=== PATIENT | male | born 1945 | race Caucasian/White ===

== ENCOUNTER 2018-12-15 12:46 | Inpatient (IN) | payer OTHER, MEDICAID ==
[~2018-12-15] VITALS: Ht 185.4 cm; Wt 102.1 kg
--- NOTE | 2018-12-15 12:50 | NUR ---
ATTEMTED TO TRIAGE PT AND HE REFUSED AT THIS TIME BECAUSE HE WAS GETTING FOOD OUT OF VENDING MACHINE, PT STATES HE ONLY WANTS A NURSE WHO SPEAKS FILIPINO.
--- NOTE | 2018-12-15 13:20 | NUR ---
Patient to ER bed 3 to gown for evaluation. Side rails up.
[2018-12-15 13:27] VITALS: BP_SYST 160
--- NOTE | 2018-12-15 13:28 | NUR ---
Pt AAOx4 presents to ED from boarding care c/o acute on chronic R leg pain. Pt non-compliant, refusing to answer questions. Skin dry and warm, breathing even and unlabored. No other injuries/complaints per pt/noted. Will continue to monitor.
--- NOTE | 2018-12-15 13:42 | NUR ---
ER at bedside examining patient.
--- NOTE | 2018-12-15 14:32 | NUR ---
# 22 gauge angiocath placed to left hand. Use of asceptic technique. Opsite placed over site. Blood return noted. Blood for lab drawn from site. Flushed with 10 cc of normal saline. No evidence of infiltration noted. Patient tolerated well.
[2018-12-15 14:39] LABS: EOSINOPHILS # (AUTO) 0.3 K/uL (0.0-0.4); EOSINOPHILS % (AUTO) 4.9 % (0.0-4.0); HEMOGLOBIN 15.9 g/dL (14.0-18.0); LYMPHOCYTES % (AUTO) 16.6 % (20.5-51.5); MEAN CORPUSCULAR HEMOGLOBIN 29 pg (27-31); MEAN CORPUSCULAR HGB CONC 34 % (32-36); MEAN CORPUSCULAR VOLUME 86 fL (79.0-98.0); MONOCYTES # (AUTO) 0.5 K/uL (0.0-1.0); MONOCYTES % (AUTO) 7.4 % (1.7-9.3); PLATELET COUNT (AUTO) 231 K/uL (130-430); RED BLOOD CELL COUNT(AUTO) 5.45 MIL/uL (4.2-6.2); RED CELL DISTRIBUTION WIDTH 14.6 % (9.0-15.0); WHITE BLOOD COUNT (AUTO) 6.2 K/uL (4.8-10.8)
[2018-12-15] MEDS ORDERED: METH40TA14 PO (14:42)
[2018-12-15] MEDS ORDERED: FURO-150 PO (14:42)
[2018-12-15] MEDS ORDERED: GABA-533 PO (14:42)
[2018-12-15] MEDS ORDERED: IPRA4AER INH (14:42)
[2018-12-15] MEDS ORDERED: CLON1TAB12 PO (14:42)
--- NOTE | 2018-12-15 14:43 | NUR ---
Medication reconciliation completed with information provided by patient. Any prior medication reconciliation on file was reviewed and corrected.
[2018-12-15 14:44] LABS: ANION GAP 4 (5-15); CHLORIDE 100 mmol/L (98-107); CREATININE 1.06 mg/dL (0.55-1.30); GLUCOSE 133 mg/dL (70-99); SODIUM SERUM 134 mmol/L (136-145); UREA NITROGEN, BLOOD 15 mg/dL (8-21)
[2018-12-15 14:45] LABS: BASOPHILS % (AUTO) 0.3 % (0.0-2.0); NEUTROPHILS # (AUTO) 4.4 K/uL (1.8-7.7); NEUTROPHILS % (AUTO) 70.8 % (40.0-70.0)
[2018-12-15 14:52] LABS: ALANINE AMINOTRANSFERASE 13 U/L (12-78); ALBUMIN 3.9 g/dL (3.4-4.8); ASPARTATE AMINOTRANSFERASE 24 U/L (10-37); TOTAL BILIRUBIN 0.6 mg/dL (0.0-1.0)
[2018-12-15 14:56] LABS: BILIRUBIN,URINE NEGATIVE (NEGATIVE); BLOOD, URINE NEGATIVE (NEGATIVE); CLARITY/URINE CLEAR (CLEAR); COLOR,URINE YELLOW (YELLOW); GLUCOSE,URINE NEGATIVE (NEGATIVE); KETONES,URINE NEGATIVE (NEGATIVE); LEUKOCYTE ESTERASE ,URINE NEGATIVE (NEGATIVE); NITRITE, URINE NEGATIVE (NEGATIVE); PROTEIN URINE NEGATIVE (NEGATIVE); UROBILINOGEN,URINE 0.2 (0.2-1.0)
--- NOTE | 2018-12-15 14:56 | NUR ---
Ultrasound at bedside
--- NOTE | 2018-12-15 16:06 | NUR ---
Patient will be admitted to [facility]. Admitted to Med Surg unit. Bed number pending per [facility]. Summary report printed. Report will be given at bedside.
--- NOTE | 2018-12-15 16:30 | NUR ---
Per [facility], room number pending.
--- NOTE | 2018-12-15 16:49 | NUR ---
CONSULTATION PAGED/CALLED Reason for Consultation: [] CELLULITIS Person Who was Notified: [] JUNIE Consulting Physician: [] DR RUCHI ROSADO Master [employer] Glass Technician Specialty: [] ID Ordering Physician: [] DR Meenu LERMA
--- NOTE | 2018-12-15 16:55 | NUR ---
ADMISSION: The patient, FRANCIS PALACIO , 73 y/o, M admitted by ETELVINA LERMA MD, was given written information regarding hospital policies, unit procedures and contact persons. Valuables were checked and .
[2018-12-15 17:00] VITALS: BP_SYST 158
--- NOTE | 2018-12-15 17:00 | NUR ---
RECIEVED PT FROM ER WITH A DX OF CELLULITIS, PT WAS TRANSFERRED VIA [facility]. PT IS AMBULATED FROM [facility] TO BED, GAIT STABLE, PT COMPLAINED OF RIGHT FOOT PAIN WHILE AMBULATING. PT IS ALERT AND ORIENTED X4, IN RA, NO SOB, LUNGS CTA, BOWEL PRESENT ON ALL QUADRANT, IV SL ON LEFT HAND. BILATERAL LOWER LEGS SWELLING AND SKIN DISCOLORATION, ORIENTATED PT TO NURSE TIME AND PLACE, REVIEWED PLAN OF CARE, ENCOURAGED PT TO USE CALL LIGHT NEEDED
--- NOTE | 2018-12-15 17:04 | NUR ---
CONSULTATION PAGED/CALLED Reason for Consultation: [] DEPRESSION Person Who was Notified: [] JUNIE Consulting Physician: [] DR Vega SANCHEZ [employer] Specialty: [] PSYCH Ordering Physician: [] DR Meenu LERMA
--- NOTE | 2018-12-15 18:14 | NUR ---
Spoke to Juan Jose Egan and made aware of consults, Per MD he will come and see patient.
[2018-12-15] MEDS: VANCOMYCIN HCL 1,250 MG in NS 250 ML IV SCH (18:19)
--- NOTE | 2018-12-15 18:49 | NUR ---
CLOSING PT REMAINS STABLE, NO SOB. DENIES ANY PAIN, CALL LIGHT WITHIN REACH
--- NOTE | 2018-12-15 19:30 | NUR ---
Opening notes Received report. Patient is resting in bed. No signs of distress noted. Breathing even and unlabored. IV patent and intact, no signs of infiltration noted. Patient is ambulatory with steady gait. Dry scab and redness noted on right 5th toe. Patient states its been like that for 2 weeks. Patient requesting home medications. will page MD. Call light with the patient. Safety precautions in place.
[2018-12-15 20:00] VITALS: BP_SYST 132
--- NOTE | 2018-12-15 21:30 | NUR ---
Dr. Rnoquillo at bedside seen and examine patient. MD reconciled medications.
[2018-12-15] MEDS ORDERED: IPRATROPIUM/ALBUTEROL SULFATE 120 PUFFS/4 GM INH INH SCH (21:45)
[2018-12-15] MEDS ORDERED: clonazePAM 0.5 MG TABLET PO SCH (22:30)
--- NOTE | 2018-12-15 23:03 | NUR ---
Medication given. Educated the action and side effects of medications. Patient verbalized understanding and tolerated well. No signs of allergic reaction noted. No other needs at this time. call light with the patient. Safety precautions in place.
[2018-12-16] VITALS (7 sets, daily range): BP systolic 128–141
--- NOTE | 2018-12-16 01:30 | NUR ---
RESTING PATIENT RESTING IN BED WATCHING A MOVIE ON PHONE. NO SIGNS OF DISTRESS NOTED. BREATHING EVEN AND UNLABORED. NO NEEDS AT THIS TIME. CALL LIGHT WITH THE PATIENT. SAFETY PRECAUTIONS IN PLACE.
--- NOTE | 2018-12-16 04:00 | NUR ---
Sleeping No signs of distress noted. Breathing even and unlabored. Call light with the patient. Safety precautions in place.
[2018-12-16] MEDS: VANCOMYCIN HCL 1,250 MG in NS 250 ML IV SCH ×2 (05:58→17:55)
[2018-12-16 06:37] LABS: HEMATOCRIT 45.1 % (36-54); HEMOGLOBIN 15.6 g/dL (14.0-18.0); MEAN CORPUSCULAR HEMOGLOBIN 30 pg (27-31); MEAN CORPUSCULAR HGB CONC 35 % (32-36); MEAN CORPUSCULAR VOLUME 86 fL (79.0-98.0); PLATELET COUNT (AUTO) 203 K/uL (130-430); RED BLOOD CELL COUNT(AUTO) 5.27 MIL/uL (4.2-6.2); RED CELL DISTRIBUTION WIDTH 14.3 % (9.0-15.0); WHITE BLOOD COUNT (AUTO) 5.4 K/uL (4.8-10.8)
--- NOTE | 2018-12-16 06:47 | NUR ---
Closing notes Patient resting in bed, watching movie on phone. No signs of distress noted. Breathing even and unlabored. IV patent and intact, infusing abx. All needs met throughout the shift. Call light with the patient. Safety precautions in place. Will endorse care to day shift RN.
[2018-12-16 07:02] LABS: ALANINE AMINOTRANSFERASE 11 U/L (12-78); ALBUMIN 3.5 g/dL (3.4-4.8); ANION GAP 5 (5-15); ASPARTATE AMINOTRANSFERASE 23 U/L (10-37); CALCIUM 9.2 mg/dL (8.4-11.0); CHLORIDE 104 mmol/L (98-107); CREATININE 0.92 mg/dL (0.55-1.30); GLUCOSE 95 mg/dL (70-99); POTASSIUM 3.9 mmol/L (3.5-5.1); SODIUM SERUM 138 mmol/L (136-145); TOTAL BILIRUBIN 0.7 mg/dL (0.0-1.0); UREA NITROGEN, BLOOD 13 mg/dL (8-21)
--- NOTE | 2018-12-16 07:59 | NUR ---
AM NOTES- walking in the room and very upset, wants his methadone now. Called pharmacy and made aware. Informed patient that they have to verify it first. denies any shortness of breath, Update plan of care. safety precaution observed. call light within reach. will monitor.
[2018-12-16] MEDS ORDERED: IPRATROPIUM/ALBUTEROL SULFATE 3 ML AMPUL.NEB (DUONEB) INH PRN (08:00)
[2018-12-16] MEDS: clonazePAM 0.5 MG TABLET PO SCH ×4 (08:33→20:27)
[2018-12-16] MEDS: FUROSEMIDE 20 MG TABLET PO SCH (08:34)
[2018-12-16] MEDS ORDERED: GABAPENTIN 400 MG CAPSULE PO SCH (09:00)
[2018-12-16] MEDS ORDERED: METHADONE HCL 10 MG TABLET PO SCH (09:00)
--- NOTE | 2018-12-16 11:00 | NUR ---
Pt is walking in the hallway, No acute distress noted.
[2018-12-16 11:48] LABS: BAND % (MANUAL) 2 % (0-6); BASOPHILS % (MANUAL) 0 % (0-2); EOSINOPHILS % (MANUAL) 4 % (0-7); LYMPHOCYTES % (MANUAL) 10 % (20-46); MONOCYTES % (MANUAL) 10 % (0-11)
--- NOTE | 2018-12-16 12:53 | NUR ---
Pt stated that he takes neurontin 400mg 3x a day. Prieto luna MD.
--- NOTE | 2018-12-16 15:00 | NUR ---
still waiting for Dr. Ronquillo to call back RE: Neurontin frequency.
--- NOTE | 2018-12-16 15:23 | NUR ---
Seen By Dr. Ingram at bedside.
--- NOTE | 2018-12-16 18:30 | NUR ---
Notes- Pt is went to Bone scan at this time. No change in assessment. All needs meet through out shift.
--- NOTE | 2018-12-16 19:15 | NUR ---
CHANGE OF SHIFT; pt. sleeping when received, no acute distress. dayshift nurse got an order for Kennedy instead of Percocet from Dr. Ronquillo. call liglorraine at bedside. safety measures in place. will reassess later.
[2018-12-16] MEDS: GABAPENTIN 400 MG CAPSULE PO SCH (20:27)
--- NOTE | 2018-12-16 20:30 | NUR ---
NOTES: pt. awakened, was sleeping, headset on and was watching on his phone. IV antibiotic still infusing on left hand. VS checked. call light at bedside, saying he does not need it but placed on side rail. will be hot die picker for the second part of the bone scan test for his rt. foot. dry wound on 5th toe(rt. foot). foot part elevated.
[2018-12-16] MEDS: HYDROcodone/ACETAMIN 5-325 MG TAB (NORCO/ VICODIN) PO PRN (20:40)
--- NOTE | 2018-12-16 21:46 | NUR ---
NOTES: pt. ambulated to the restroom, pt. easily gets upset but apologize after. new urinal at bedside. IV lock , slight pain when flushing. noted some relief from pain.
--- NOTE | 2018-12-16 22:30 | NUR ---
NOTES: pt. left via wheelchair for part 2 of bone scan in stable condition.
--- NOTE | 2018-12-16 23:35 | NUR ---
NOTES; pt. came back from the test. settled in bed, repositioned self.
--- NOTE | 2018-12-17 01:03 | NUR ---
NOTES: made rounds and pt. sleeping. condition observed.
[2018-12-17] MEDS: HYDROcodone/ACETAMIN 5-325 MG TAB (NORCO/ VICODIN) PO PRN ×2 (02:39→12:47)
--- NOTE | 2018-12-17 02:39 | NUR ---
NOTES: pt. got out of bed and walked up to the nurses station to tell that he is in pain, did not use call light and was upset when told to use it , said he went to the restroom and voided. pt. medicated with Edmore as ordered and had to get sprite coz he does not drink water. pt. cursed earlier with a loud voice.
--- NOTE | 2018-12-17 04:00 | NUR ---
NOTES: pt. checked and sleeping soundly.
[2018-12-17] MEDS: VANCOMYCIN HCL 1,250 MG in NS 250 ML IV SCH ×2 (05:25→17:35)
--- NOTE | 2018-12-17 05:34 | NUR ---
NOTES: pt. awakened and went to the restroom. IV site flushed slowly, due IV antibiotic started and regulated. back to bed and will try to go back to sleep.
--- NOTE | 2018-12-17 05:59 | NUR ---
Isabel Pickard spoke to the doctor
[2018-12-17] MEDS ORDERED: METHADONE HCL 10 MG TABLET PO SCH (06:04)
--- NOTE | 2018-12-17 06:07 | NUR ---
NOTES; called Dr. Ronquillo, pt. c/o severe rt. knee burning pain, aware pain medication is not due but wants his Methadone now since pt. said he always take it early am. Ok to give early @ 0600, called pharmacist Dale to adjust time.
[2018-12-17] MEDS: METHADONE HCL 10 MG TABLET PO SCH (06:19)
--- NOTE | 2018-12-17 06:44 | NUR ---
CLOSING NOTES; pt. resting, much calmer, bone scan result still pending. IV antibiotic still infusing. needs attended. for further care and assistance. call light within reach.
--- NOTE | 2018-12-17 07:34 | NUR ---
Initial notes: Patient sleeping. Stable. I.V. access patent. Call light within reach. Safety measures in placed. Report received at bedside.
[2018-12-17 08:00] VITALS: BP_SYST 140
[2018-12-17] MEDS: GABAPENTIN 400 MG CAPSULE PO SCH ×3 (08:49→21:31)
[2018-12-17] MEDS: clonazePAM 0.5 MG TABLET PO SCH ×4 (08:49→21:31)
[2018-12-17] MEDS: FUROSEMIDE 20 MG TABLET PO SCH (08:50)
--- NOTE | 2018-12-17 08:53 | NUR ---
rounds: Patient woke up. Alert, awake and oriented. Discussed plan of care. Refused Furosemide. Education provided and still refused. Insist of saying he stop taking it for 2 weeks.
[2018-12-17 11:11] VITALS: BP_SYST 163
--- NOTE | 2018-12-17 12:12 | NUR ---
rounds: Patient sleeping. No distress noted.
--- NOTE | 2018-12-17 12:29 | NUR ---
Nutrition Update Grzegorz Scale 18 noted. Pt admitted for cellulitis. Diet: regular BMI: 29.7 kg/m2 RD to follow per nutrition care standards.
--- NOTE | 2018-12-17 13:25 | NUR ---
Pain: Patient complained of severe r leg pain. Pain med was already given but pt crying from pain. Called Dr Ronquillo with new order for pain med.
--- NOTE | 2018-12-17 14:36 | NUR ---
rounds: Patient sleeping. no distress noted.
[2018-12-17 15:03] VITALS: BP_SYST 128
--- NOTE | 2018-12-17 16:05 | NUR ---
rounds: Patient listening to music. no distress noted.
[2018-12-17] MEDS: OXYCODONE/ACETAMINOPHEN *10*mg/325 mg TABLET PO PRN ×2 (17:35→23:32)
--- NOTE | 2018-12-17 18:35 | NUR ---
Closing notes: Patient finishing dinner. Stable. Needs attended. Informed Patient he will have an MRI for further study of his R foot. Call light within reach. Safety measures in placed. report will be given to shift superintendent.
--- NOTE | 2018-12-17 19:15 | NUR ---
CHANGE OF SHIFT; pt. sleeping when received, was just medicated for pain on rt. leg/knee/foot. IV antibiotic still infusing. no acute distress. call light at bedside. will reassess later.
[2018-12-17 21:00] VITALS: BP_SYST 143
--- NOTE | 2018-12-17 22:00 | NUR ---
NOTES: IV site infiltrated, appears reddened skin on left hand. Nurse Bismark asked to insert another one, IV on rt forearm with # 22 gauge inserted.
--- NOTE | 2018-12-17 23:35 | NUR ---
NOTES: pt. crying for pain, medicated with Percocet as ordered for his rt. leg/foot/knee and rt. arm pain.
--- NOTE | 2018-12-17 23:45 | NUR ---
NOTES: pt. unable to get to restroom in time, use the urinal but accidentally spill some urine on the floor. kept floor dry. will change beddings since it got stained with blood when IV was reinserted. asked ORQUIDEA Rivas to change bedsheet.
[2018-12-18 00:22] VITALS: BP_SYST 140
--- NOTE | 2018-12-18 02:00 | NUR ---
NOTES; pt. checked and sleeping. in no distress.
--- NOTE | 2018-12-18 04:14 | NUR ---
NOTES: pt. pretty awake, gave pudding. dangling at bedside. condition observed.
[2018-12-18] MEDS: VANCOMYCIN HCL 1,250 MG in NS 250 ML IV SCH (05:59)
[2018-12-18] MEDS: METHADONE HCL 10 MG TABLET PO SCH (05:59)
--- NOTE | 2018-12-18 06:00 | NUR ---
NOTES: pt. waiting for his methadone this am and given and his IV antibiotic. Dr. Sotomayor here, talked to pt. and will order new med. still with chronic rt. leg/foot pain due to cellulitis and OA on rt. 5th toe. pt. needs attended.call light at bedside.
--- NOTE | 2018-12-18 06:40 | NUR ---
CLOSING NOTES; pt. is giving the organic lab worker a hard time to draw his blood, attempted twice, will ask someone to draw blood later. IV antibiotic in progress via rt. arm. for further care and assist. will endorse to day shift.
--- NOTE | 2018-12-18 07:55 | NUR ---
Opening note patient resting in bed, a/ox4, denies pain, assessment complete, IV line is patent and infusing well, educated the patient public opinion survey taker light system and on plan of care and to call for any assistance, he verbalized understanding, no other needs at this time, bed in lowest position, two side rails up, call light within reach, fall and aspiration precautions in place.
[2018-12-18 08:40] VITALS: BP_SYST 150
[2018-12-18] MEDS: FUROSEMIDE 20 MG TABLET PO SCH (09:00)
[2018-12-18] MEDS: GABAPENTIN 400 MG CAPSULE PO SCH ×3 (09:15→21:35)
[2018-12-18] MEDS: clonazePAM 0.5 MG TABLET PO SCH ×4 (09:15→21:34)
[2018-12-18] MEDS: DULoxetine HCL 30 MG CAPSULE.DR (CYMBALTA) PO SCH (09:15)
--- NOTE | 2018-12-18 09:15 | NUR ---
Medication patient resting in bed, denies pain, educated on morning medications uses and potential side effects, patient refused lasix PO, educated on benefits, he still refuses, otherwise he took all medication and tolerated well, no other needs at this time, continuing to monitor, bed in lowest position, two side rails up, call light within reach, fall and aspiration precautions in place.
[2018-12-18 09:38] LABS: BASOPHILS # (AUTO) 0.1 K/uL (0.0-0.2); BASOPHILS % (AUTO) 1.2 % (0.0-2.0); EOSINOPHILS # (AUTO) 0.3 K/uL (0.0-0.4); EOSINOPHILS % (AUTO) 5.1 % (0.0-4.0); HEMATOCRIT 43.4 % (36-54); LYMPHOCYTES # (AUTO) 0.8 K/uL (1.0-5.5); LYMPHOCYTES % (AUTO) 14.8 % (20.5-51.5); MEAN CORPUSCULAR HEMOGLOBIN 30 pg (27-31); MEAN CORPUSCULAR HGB CONC 35 % (32-36); MEAN CORPUSCULAR VOLUME 86 fL (79.0-98.0); MONOCYTES # (AUTO) 0.3 K/uL (0.0-1.0); MONOCYTES % (AUTO) 5.5 % (1.7-9.3); NEUTROPHILS # (AUTO) 3.8 K/uL (1.8-7.7); NEUTROPHILS % (AUTO) 73.4 % (40.0-70.0); PLATELET COUNT (AUTO) 186 K/uL (130-430); RED BLOOD CELL COUNT(AUTO) 5.07 MIL/uL (4.2-6.2); RED CELL DISTRIBUTION WIDTH 14.2 % (9.0-15.0); WHITE BLOOD COUNT (AUTO) 5.1 K/uL (4.8-10.8)
[2018-12-18 09:43] LABS: ALANINE AMINOTRANSFERASE 10 U/L (12-78); ALBUMIN 3.5 g/dL (3.4-4.8); ANION GAP 7 (5-15); ASPARTATE AMINOTRANSFERASE 21 U/L (10-37); CALCIUM 8.7 mg/dL (8.4-11.0); CHLORIDE 103 mmol/L (98-107); CREATININE 1.14 mg/dL (0.55-1.30); GLUCOSE 143 mg/dL (70-99); POTASSIUM 3.8 mmol/L (3.5-5.1); SODIUM SERUM 140 mmol/L (136-145); TOTAL BILIRUBIN 0.6 mg/dL (0.0-1.0); UREA NITROGEN, BLOOD 15 mg/dL (8-21)
[2018-12-18 11:33] VITALS: BP_SYST 131
--- NOTE | 2018-12-18 12:35 | NUR ---
Patient off the unit to MRI, patient in stable condition.
[2018-12-18] MEDS: OXYCODONE/ACETAMINOPHEN *10*mg/325 mg TABLET PO PRN (14:26)
--- NOTE | 2018-12-18 14:28 | NUR ---
Patient back on the unit/Pain patient resting in bed, complaining of generalized pain, educated patient on scheduled and PRN medication uses and potential side effects, re-educated on safety precautions, he verbalized understanding, continuing to monitor patient, bed in lowest position, two side rails up, call light within reach, fall and aspiration precautions in place.
--- NOTE | 2018-12-18 15:26 | NUR ---
RN rounds patient resting in bed, awake, states pain has improved, no other needs at this time, continuing to monitor, bed in lowest position, two side rails up, call light within reach, fall and aspiration precautions in place.
[2018-12-18 15:39] VITALS: BP_SYST 138
--- NOTE | 2018-12-18 17:49 | NUR ---
Medication patient resting in bed, denies pain, educated on medications uses and potential side effects, patient verbalized understanding and tolerated well, called dietary for grilled cheese sandwich for patient per his request, continuing to monitor patient, bed in lowest position, two side rails up, call light within reach, fall and aspiration precautions in place.
--- NOTE | 2018-12-18 18:46 | NUR ---
Closing note patient resting in recliner chair, stable condition, all needs met, will endorse report to NOC shift nurse, continuing to monitor patient, bed in lowest position and two side rails up for when patient wishes to return to bed, bed brake on, fall and aspiration precautions in place
--- NOTE | 2018-12-18 19:15 | NUR ---
OPENING NOTES RECEIVED PATIENT SITTING IN JOSUE CHAIR AAO X4. BREATHING UNLABORED ON ROOM AIR. SALINE LOCK INTACT TO RFA. NO DISTRESS NOTED.
[2018-12-18 21:27] VITALS: BP_SYST 135
[2018-12-18] MEDS: VANCOMYCIN HCL 1 GM/NS PREMIX 250 ML IV SCH (21:32)
--- NOTE | 2018-12-18 21:35 | NUR ---
MED PASS/ATB PATIENT DUE MEDICATIONS GIVEN. DUE ANTIBIOTIC INFUSED. IV LINE INTACT. VITAL SIGNS STABLE.
[2018-12-19] VITALS (7 sets, daily range): BP systolic 118–139
[2018-12-19] MEDS: OXYCODONE/ACETAMINOPHEN *10*mg/325 mg TABLET PO PRN ×3 (01:26→15:19)
--- NOTE | 2018-12-19 01:26 | NUR ---
PAIN MGT PATIENT MEDICATED WITH PERCOCET FOR C/O BLE/YANETH HIPS/SHOULDER PAIN 09/30. VITAL SIGNS STABLE. CALL LIGHT WITH IN REACH.
--- NOTE | 2018-12-19 03:30 | NUR ---
ROUNDS NO CHANGE IN CONDITION. CALL LIGHT WITH IN REACH.
[2018-12-19 04:59] LABS: CALCIUM 8.6 mg/dL (8.4-11.0); CREATININE 0.91 mg/dL (0.55-1.30); GLUCOSE 105 mg/dL (70-99); POTASSIUM 4.2 mmol/L (3.5-5.1); SODIUM SERUM 136 mmol/L (136-145); UREA NITROGEN, BLOOD 14 mg/dL (8-21)
[2018-12-19 05:07] LABS: ANION GAP 3 (5-15); CHLORIDE 103 mmol/L (98-107)
[2018-12-19] MEDS: METHADONE HCL 10 MG TABLET PO SCH (05:38)
--- NOTE | 2018-12-19 06:29 | NUR ---
CLOSING NOTES PATIENT RESTING IN BED. NO DISTRESS NOTED. PATIENT NEEDS ATTENDED. BED IN LOWEST LOCKED POSITION. CALL LIGHT WITH IN REACH.
--- NOTE | 2018-12-19 07:10 | NUR ---
SBAR REPORT RECEIVED AT THE BEDSIDE. PATIENT AAOX 4. BREATHING EVEN AND UNLABORED. ABDOMEN SOFT AND NON DISTENDED. HAS IV ACCESS ON THE RT FOREARM #22. SALINE LOCK. BOTH LEGS DISCOLORATION NOTED. HAS NON PITTING EDEMA ON THE RT LEG. AND HAS DRY SCAB ON 5TH TOE. BED LOW POSITION, ALARMED AND LOCKED. CALL LIGHTS WITHIN REACH. CONTINUE TO MONITOR PATIENTS STATUS.
[2018-12-19] MEDS: VANCOMYCIN HCL 1 GM/NS PREMIX 250 ML IV SCH (08:18)
[2018-12-19] MEDS: clonazePAM 0.5 MG TABLET PO SCH ×4 (08:18→19:45)
[2018-12-19] MEDS: GABAPENTIN 400 MG CAPSULE PO SCH ×3 (08:18→19:45)
[2018-12-19] MEDS: DULoxetine HCL 30 MG CAPSULE.DR (CYMBALTA) PO SCH (08:19)
[2018-12-19] MEDS: FUROSEMIDE 20 MG TABLET PO SCH (08:19)
--- NOTE | 2018-12-19 08:24 | NUR ---
MED PASS. PERCOCET TABLET GIVEN. ASSISTS ON ADLS.
--- NOTE | 2018-12-19 11:58 | NUR ---
Discharge Planning: DCP faxed to Brenna [facility] (f [phone] p [phone]) DCP to follow up Addendum: 12/19/18 at 1431 by Romy Zhang DP Per Brenna at [facility] (f [phone] p [phone]) patient declined does not meet criteria. DCP faxed to [facility] (f [phone] p [phone]) DCP to follow up Addendum: 12/19/18 at 1546 by Romy Zhang DP [facility] (f [phone] p [phone]) RM 36A DCP made nurse aware, also a DC order is needed. Addendum: 12/19/18 at 1633 by Romy Zhang DP [facility] (f [phone] p [phone]) 36A, Care ([phone]) 7:00pm P/U nurse made aware and patient packet taken to nurse station. Addendum: 12/19/18 at 1711 by Romy Zhang DP Per CM DCP cancelled transportation [facility] (f [phone] p [phone]) RM 36A.
--- NOTE | 2018-12-19 12:35 | NUR ---
klonopin tablet given with water. made comfortable. still eating lunch
--- NOTE | 2018-12-19 14:46 | NUR ---
WOUND EVALUATION: Wound Consult received from Dr. Ronquillo. Thank you, Dr. Ronquillo, for the consult. Patient received in a Loulou Bed with an IsoFlex SERENITY mattress, awake, alert, and oriented x 4. Patient is able to turn in bed and ambulate independently. Grzegorz Score is a 21. Past Medical History: Chronic back and right leg pain on Methadone, Prostate Cancer, COPD, PTSD, Osteoarthritis. Recent Labs: WBC 5.1, RBC 5.07, hemoglobin 15.0, hematocrit 43.4, glucose 105, albumin 3.5. Microbiology: Blood culture results 2 in progress. Urine culture results negative. Intrinsic factors that delay wound healing: COPD. Extrinsic factors that delay wound healing: Decreased mobility. Wound Assessment: 1. Right fifth toe: Chronic ischemic wound, present on admission. Wound bed has 80% brown eschar, 10% black eschar, 10% yellow eschar. No odor, no drainage. Periwound intact. Dry, stable. Measures 1. 6 cm x 1.2 cm. Recommend: [place] wound with Betadine. Allow to air dry. Cover with foam dressing. Perform wound care and assess site daily, and as needed for dressing soiling or dislodgement. Also recommend: Encourage and assist patient as needed with repositioning every 2 hours with pillow support and off-load pressure areas with pillows for pressure re-distribution. Offload, elevate and float bilateral heels with pillows. Perform skin care and monitor skin integrity Q shift. Use moisture barrier cream on buttocks and other moisture susceptible areas QID and as needed for soiling.
--- NOTE | 2018-12-19 15:40 | NUR ---
CALLED DR LERMA FOR DISCHARGE ORDER.
--- NOTE | 2018-12-19 16:59 | NUR ---
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
--- NOTE | 2018-12-19 17:00 | NUR ---
klonopin 1 mg tablet given with water.
--- NOTE | 2018-12-19 17:08 | NUR ---
DC PLANNING: CM SPOKE WITH PATIENT AT BEDSIDE REGARDING DC TODAY TO [facility]. PATIENT STATED HE IS NOT HAPPY GOING TO [facility]. PATIENT STATED HE HAS BEEN AT A SNF AT [place]. HOWEVER, WAS NOT ABLE TO PROVIDE THE SNF NAME. PATIENT WILL LOOK FOR THE NAME OF THE SNF WILL BE PROVIDE TO CM ONCE HE FIND THE NAME.
--- NOTE | 2018-12-19 17:54 | NUR ---
AGREE FOR DC: PATIENT WALKS TO THE STATION AND STATES THAT HE AGREES TO GO TO [facility] TONIGHT. GET HIM SIGN ACKNOWLEDGEMENT TRANSFER CONSENT, AND CALL [facility] AND ARRANGE TRANSPORTATION AT 19.00 TONIGHT.
--- NOTE | 2018-12-19 18:00 | NUR ---
HAD DINNER GOOD. NO COMPLAINED MADE SO FAR. VERBALIZED WANTS TO GO TO [facility] AND AGREED TO GO.
--- NOTE | 2018-12-19 19:10 | NUR ---
sbar endorsed to Esther REIS. patient will be discharged to [facility].
--- NOTE | 2018-12-19 19:30 | NUR ---
Ambulance here at the [facility] to pick pt up, but pt refused to leave without first taking his 2100 Klonopin. Pt is fully AAO x4, ambulatory with steady gait. Pt already signed his transition of care/discharge instructions. Spoke with charge nurses Naun and Donn who stated it's okay to give pt his 2100 medications earlier since Ambulance personnel are unable to wait until 1999 when 2100 medications can be given.
--- NOTE | 2018-12-19 19:50 | NUR ---
Pt was transferred to [facility] with all his belongings via Ambulance in stable condition after pt received his 2100 Klonopin and Gabapentin. Wrist ID band was removed and placed in the shredder. Plain wrist ID band with pt's name and is already on pt's wrist. Saline lock was left in place for continuation of IV antibiotic.
[2018-12-19] MEDS ORDERED: LEVOFLOXACIN 500 MG TABLET PO SCH (21:00)
== END 2018-12-19 19:52 | DRG 603 ==
LOC: SED 12:46 → SMU 15:59
PROVIDERS: ADMIT Internal Medicine; ATTEND Internal Medicine
DX: L03.031 Cellulitis of right toe (principal); L03.115 Cellulitis of right lower limb; M81.0 Age-related osteoporosis without current pathological fracture; F32.9 Major depressive disorder, single episode, unspecified; F43.10 Post-traumatic stress disorder, unspecified; G89.29 Other chronic pain; I10 Essential (primary) hypertension; J44.9 Chronic obstructive pulmonary disease, unspecified; M19.90 Unspecified osteoarthritis, unspecified site; Z85.46 Personal history of malignant neoplasm of prostate; Z79.899 Other long term (current) drug therapy; L97.519 Non-pressure chronic ulcer of other part of right foot with unspecified severity
CPT/HCPCS: 36415; 70030; 73721; 78315; 80048; 80053; 80202-TC; 81003; 83605; 84484; 85007; 85025; 85027; 85651-TC; 86140; 87040-TC; 87086; 93005; 93923; 93971; 99285; A9503; J3370; J7050